=== PATIENT | male | born 1970 | race Caucasian/White ===

== ENCOUNTER → 2019-04-20 | Outpatient (CLI) | payer OTHER | LOC: RAD 14:38 | DX: M47.812 Spondylosis without myelopathy or radiculopathy, cervical region (principal) ==

== ENCOUNTER → 2019-05-23 | Outpatient (CLI) | payer OTHER | LOC: MRI 07:19 | DX: M50.11 Cervical disc disorder with radiculopathy, high cervical region (principal); M12.88 Other specific arthropathies, not elsewhere classified, other specified site; M48.02 Spinal stenosis, cervical region ==